=== PATIENT | female | born 1935 | race Caucasian/White ===

== ENCOUNTER 2024-01-15 08:20 | Day surgery (SDC) | payer MEDICARE, MEDICAID, SELFPAY ==
--- NOTE | 2024-01-15 07:07 | W.PREOPHP ---
Assessment and Plan Assessment and plan (1) Cortical age-related cataract, right eye: Status: Acute Assessment and plan: Assessment: visually significant cataract of the right eye. Plan: Cataract extraction with lens implantation of the right eye. (2) Nuclear age-related cataract, right eye: Status: Acute Assessment and plan: Assessment: visually significant cataract of the right eye. Plan: Cataract extraction with lens implantation of the right eye. (3) Cortical age-related cataract, left eye: Status: Acute Assessment and plan: Assessment: Visually significant cataract of the left eye. Plan: Cataract extraction with lens implantation of the left eye. (4) Nuclear age-related cataract, left eye: Status: Acute Assessment and plan: Assessment: Visually significant cataract of the left eye. Plan: Cataract extraction with lens implantation of the left eye. History of Present Illness History of Present Illness Chief Complaint: Progressive decreased vision, both eyes Narrative: The patient is an 88-year-old lady who presented with complaints of progressive decreased vision in both eyes at both distance and near. She notes difficulty seeing the TV clearly, and has difficulty reading. She can only read larger print. She has severe difficulty with glare. On examination she was noted to have dense bilateral cataracts. The option of cataract surgery was offered to the patient and she wished to proceed. 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-related cataract, right eye (Acute) Medical History Generalized anxiety disorder Emphysema lung Insomnia GERD (gastroesophageal reflux disease) Left hip pain PVD (peripheral vascular disease) Fibromyalgia Chronic combined systolic (congestive) and diastolic (congestive) heart failure Chronic ischemic heart disease Heart disease HTN (hypertension) Heart failure Chronic kidney disease COPD (chronic obstructive pulmonary disease) Social History Smoking/Tobacco Use Status: Unknown Smoking risk assessment performed?: Yes Alcohol Intake: never Drug use: Never Substance use type: does not use Housing: senior care Additional Social history: unable to assess Meds Allergies and Home Medications Allergies Allergy/AdvReac Type Severity Reaction Status Date / Time acetaminophen [From Percocet] Allergy Unknown unkown Verified 01/13/24 11:14 aspirin [From Percodan] Allergy Unknown unknown Verified 01/13/24 11:14 celecoxib [From Celebrex] Allergy Unknown unknown Verified 01/13/24 11:14 oxycodone [From Percodan] Allergy Unknown unknown Verified 01/13/24 11:14 morphine Allergy Other (See Verified 01/13/24 11:14 Comment) nalfon Allergy Unknown unkown Uncoded 01/13/24 11:14 Home Medications Medication Instructions Recorded Confirmed Type acetaminophen 325 mg tablet (Pain 325 mg PO Q6H PRN 01/13/24 01/13/24 History Relief (acetaminophen)) albuterol sulfate 90 mcg/actuation 2 puff inhalation Q4H PRN 01/13/24 01/13/24 History aerosol inhaler amlodipine 10 mg tablet 5 mg PO DAILY 01/13/24 01/13/24 History camphor-menthol 0.2 %-3.5 % 1 applic topical BID 01/13/24 01/13/24 History topical gel (Arctic Relief) cyanocobalamin (vitamin B-12) 500 500 mcg PO DAILY 01/13/24 01/13/24 History mcg tablet (Vitamin B-12) dextran 70-hypromellose eye drops 1 drp ophthalmic (eye) BID PRN 01/13/24 01/13/24 History (Artificial Tears (dextran 70-hypromellose) eye drops) estradiol 0.01% (0.1 mg/gram) 1 g vaginal .COMPLEX 01/13/24 01/13/24 History vaginal cream famotidine 20 mg tablet 20 mg PO DAILY 01/13/24 01/13/24 History fluticasone propionate 115 1 puff inhalation HS 01/13/24 01/13/24 History mcg-salmeterol 21 mcg/actuation HFA inhaler (Advair HFA) guaifenesin 600 mg tablet, 600 mg PO Q12H PRN 01/13/24 01/13/24 History extended release 12 hr (Mucus Relief ER) isosorbide mononitrate 60 mg 30 mg PO QAM 01/13/24 01/13/24 History tablet,extended release 24 hr loperamide 2 mg tablet (Imodium 4 mg PO Q1H 01/13/24 01/13/24 History A-D) lorazepam 1 mg tablet 1 mg PO HS 01/13/24 01/13/24 History meclizine 12.5 mg tablet 12.5 mg PO Q12H PRN 01/13/24 01/13/24 History melatonin 3 mg capsule 6 mg PO HS PRN 01/13/24 01/13/24 History mineral oil-isopropyl myristat 1 applic topical DAILY PRN 01/13/24 01/13/24 History lotion (Minerin lotion) nitroglycerin 0.4 mg sublingual 0.4 mg sublingual Q5M 01/13/24 01/13/24 History tablet ondansetron 4 mg disintegrating 4 mg PO Q6H PRN 01/13/24 01/13/24 History tablet phenylephrine 0.25 %-mineral oil 1 applic [place] DAILY 01/13/24 01/13/24 History 14 %-petrolatm 74.9 % rectal ointment (Preparation H) pramoxine-calamine 1 %-3 % lotion 1 applic topical DAILY 01/13/24 01/13/24 History (Aveeno Anti-Itch) pregabalin 75 mg capsule 75 mg PO BID 01/13/24 01/13/24 History tramadol 50 mg tablet 50 mg PO TID 01/13/24 01/13/24 History Exam Eyes Other: Most recent ocular examination is significant for corrected visual acuity of 20/50 OD, 20/30 OS. Extract motility is normal. Intraocular pressure is 7 OU. Slit-lamp examination reveals pupils dilating only to 4 mm OU. Moderate nuclear and cortical cataracts are present OU. Funduscopic examination shows disc cupping of 0.35 OU with normal vessels, macula, peripheral retina and vitreous. Resp Auscultation: clear to auscultation bilaterally Cardio Rate: regular rate Rhythm: regular rhythm
[2024-01-15 08:33] VITALS: BP 158/80; PULSE 65; RESP 18; TEMP 36.3; O2SAT 93
[2024-01-15] MEDS: Lactated Ringers 1,000 ML 50 ML IV (09:10)
--- NOTE | 2024-01-15 09:30 | W.ANESPRE ---
General Info Date of Service Date Performed: 01/15/24 Height: 5 ft 6 in Weight: 69.9 kg Body Mass Index (BMI): 24.8 Surgical Procedure: Operation Date: 01/15/24 09:55 Proposed Procedure Side Surgeon p Cataract Extraction with IOL Implant Right Tommy Roman MD Meds Allergies and Home Medications Allergies Allergy/AdvReac Type Severity Reaction Status Date / Time acetaminophen [From Percocet] Allergy Unknown unkown Verified 01/15/24 08:27 aspirin [From Percodan] Allergy Unknown unknown Verified 01/15/24 08:27 celecoxib [From Celebrex] Allergy Unknown unknown Verified 01/15/24 08:27 oxycodone [From Percodan] Allergy Unknown unknown Verified 01/15/24 08:27 morphine Allergy Other (See Verified 01/15/24 08:27 Comment) nalfon Allergy Unknown unkown Uncoded 01/15/24 08:27 Home Medication Medication Instructions Recorded acetaminophen 325 mg tablet (Pain 325 mg PO Q6H PRN 01/13/24 Relief (acetaminophen)) albuterol sulfate 90 mcg/actuation 2 puff inhalation Q4H PRN 01/13/24 aerosol inhaler amlodipine 10 mg tablet 5 mg PO DAILY 01/13/24 camphor-menthol 0.2 %-3.5 % 1 applic topical BID 01/13/24 topical gel (Arctic Relief) cyanocobalamin (vitamin B-12) 500 500 mcg PO DAILY 01/13/24 mcg tablet (Vitamin B-12) dextran 70-hypromellose eye drops 1 drp ophthalmic (eye) BID PRN 01/13/24 (Artificial Tears (dextran 70-hypromellose) eye drops) estradiol 0.01% (0.1 mg/gram) 1 g vaginal .COMPLEX 01/13/24 vaginal cream famotidine 20 mg tablet 20 mg PO DAILY 01/13/24 fluticasone propionate 115 1 puff inhalation HS 01/13/24 mcg-salmeterol 21 mcg/actuation HFA inhaler (Advair HFA) guaifenesin 600 mg tablet, 600 mg PO Q12H PRN 01/13/24 extended release 12 hr (Mucus Relief ER) isosorbide mononitrate 60 mg 30 mg PO QAM 01/13/24 tablet,extended release 24 hr loperamide 2 mg tablet (Imodium 4 mg PO Q1H 01/13/24 A-D) lorazepam 1 mg tablet 1 mg PO HS 01/13/24 meclizine 12.5 mg tablet 12.5 mg PO Q12H PRN 01/13/24 melatonin 3 mg capsule 6 mg PO HS PRN 01/13/24 mineral oil-isopropyl myristat 1 applic topical DAILY PRN 01/13/24 lotion (Minerin lotion) nitroglycerin 0.4 mg sublingual 0.4 mg sublingual Q5M 01/13/24 tablet ondansetron 4 mg disintegrating 4 mg PO Q6H PRN 01/13/24 tablet phenylephrine 0.25 %-mineral oil 1 applic [place] DAILY 01/13/24 14 %-petrolatm 74.9 % rectal ointment (Preparation H) pramoxine-calamine 1 %-3 % lotion 1 applic topical DAILY 01/13/24 (Aveeno Anti-Itch) pregabalin 75 mg capsule 75 mg PO BID 01/13/24 tramadol 50 mg tablet 50 mg PO TID 01/13/24 aspirin 81 mg chewable tablet 81 mg PO DAILY 01/15/24 Current Visit Medications: Current Medications Generic Name Dose Route Start Last Admin Trade Name Freq PRN Reason Stop Dose Admin Acetaminophen 1,000 mg 01/15/24 06:00 Acetaminophen 500 Mg Tab PO 02/14/24 05:59 Q4H PRN PRN Balanced Salt Solution 500 ml 01/15/24 06:00 Balanced Salt Soln.-Plus 500 Ml Bag OP 02/14/24 05:59 DIRECTED [facility] Ringer's Solution 1,000 mls @ 80 mls/hr 01/15/24 09:15 IV 02/14/24 09:14 INFUSION [facility] IV Miscellaneous Supplies 1 each 01/15/24 09:15 Iv Access IV 02/14/24 09:14 DIRECTED [facility] Miscellaneous Medication 0 ml 01/15/24 06:00 Prednisolone 1%, Moxifloxacin 0.5%, Bromfenac 0.09% 5ml Btl OD 02/14/24 05:59 DIRECTED [facility] Miscellaneous Medication 0 ml 01/15/24 06:00 01/15/24 09:08 Tropicam./Phenyleph. (1/2.5%) 10 Ml Btl OD 02/14/24 05:59 1 drp DIRECTED [facility] Administration Sodium Chloride 0 ml 01/15/24 09:14 Normal Saline Flush 10 Ml Syr IVP 02/14/24 09:13 PRN PRN Sodium Chloride 0 ml 01/15/24 20:00 Normal Saline Flush 10 Ml Syr IVP 02/14/24 19:59 BID [facility] Sodium Chloride 0 ml 01/15/24 09:14 Normal Saline 10 Ml Vial IJ 02/14/24 09:13 DIRECTED PRN Tetracaine HCl 0 ml 01/15/24 06:00 Tetracaine 0.5% 4 Ml Btl OD 02/14/24 05:59 DIRECTED [facility] PFSH Active Problems Active Problems: Problem Status Onset Code Nuclear age-related cataract, left eye H25.12 Cortical age-related cataract, left eye H25.012 Cortical age-related cataract, right eye H25.011 Nuclear age-related cataract, right eye H25.11 Medical History Medical History Generalized anxiety disorder Emphysema lung Insomnia GERD (gastroesophageal reflux disease) Left hip pain PVD (peripheral vascular disease) Fibromyalgia Chronic combined systolic (congestive) and diastolic (congestive) heart failure Chronic ischemic heart disease Heart disease HTN (hypertension) Heart failure Chronic kidney disease COPD (chronic obstructive pulmonary disease) Tobacco Smoking/Tobacco Use Status: Unknown Alcohol Alcohol Intake: never Substance Use Substance use: Never Substance use type: does not use Vital Signs and Lab Results Vital Signs Most Recent Vital Signs in EMR: Most Recent Vital Signs Temp Pulse Resp BP Pulse Ox 36.3 C L 65 18 158/80 H 93 01/15/24 08:33 01/15/24 08:33 01/15/24 08:33 01/15/24 08:33 01/15/24 08:33 Lab Results Blood Type / Crossmatch: No Data to Display Complete Blood Count: No Data to Display Complete Metabolic Panel: No Data to Display Liver Function Panel: No Data to Display Coagulation Panel: No Data to Display Cardiac Panel: No Data to Display Arterial Blood Gas: No Data to Display Venous Blood Gas: No Data to Display Pancreas Panel: No Data to Display Thyroid Panel: No Data to Display Infectious Disease: No Data to Display Blood Cultures: No Data to Display Toxicology Panel: No Data to Display Anesthesia Assessment and Plan Anesthesia History Personal History: No History of Anesthesia Complications Family History: Family History Unknown Exercise Tolerance Exercise Tolerance: Metabolic Equivalents<4 Pertinent Negatives Pertinent Negatives: No Symptoms of GERD Cardiac & Pulmonary Exam Cardiac Exam: Normal S1/S2 Heart Sounds Pulmonary Exam: Clear Bilateral Breath Sounds Implantable Cardiac Device Does patient have a Pacemaker or an ICD?: No Airway Exam Known Difficult Airway: No Mallampati Class: 2 Mouth Opening: Normal (> 3cm) Thyromental Distance: Greater than 3 cm Neck Range of Motion: Full ROM Neck Circumference: Normal Teeth Condition: Normal Dentition ASA Classification ASA Score: ASA 3 Emergency Case?: No NPO Status NPO Status: NPO Clears >2 hours, Solids >8 hours Anesthesia Plan Resuscitation Status: Full Code Anesthesia Technique: MAC Anesthesia Airway Planned: Natural Airway Monitors Used: Standard Monitors
[2024-01-15 09:33] VITALS: BMI 24.8
[2024-01-15] MEDS: Balanced Salt Soln.-PLUS 500 ML BAG OP (10:02)
[2024-01-15] MEDS: Duovisc Viscoelastic System EACH 1 EACH (10:04)
[2024-01-15] MEDS: Tetracaine 0.5% 4 ML BTL OD (10:04)
[2024-01-15] MEDS: Lidocaine 1% Pres-Free 5 ML VIAL (10:05)
[2024-01-15] MEDS: Povidone-Iodine Ophth 30 ML BTL (10:06)
[2024-01-15] MEDS: Trypan Blue 0.06% 0.5 ML SYR (10:06)
[2024-01-15 10:19] VITALS: BP 150/73; PULSE 58; RESP 16; TEMP 36; O2SAT 93
--- NOTE | 2024-01-15 10:19 | W.PM.DSUDISC ---
Date of service: 01/15/24 Time of Service: 10:19 Discharge Plan Disposition Patient Disposition: Home Discharge Details Attending Provider: Tommy Roman Primary Care Provider: Leonie Byrd Home Meds and New Rx's Prescriptions: No Action lorazepam 1 mg tablet 1 mg PO HS amlodipine 10 mg tablet 5 mg PO DAILY isosorbide mononitrate 60 mg tablet extended release 24 hr 30 mg PO QAM albuterol sulfate 90 mcg/actuation HFA aerosol inhaler 2 puff INHALATION Q4H PRN nitroglycerin 0.4 mg tablet, sublingual 0.4 mg sublingual Q5M acetaminophen [Pain Relief (acetaminophen)] 325 mg tablet 325 mg PO Q6H PRN tramadol 50 mg tablet 50 mg PO TID Artificial Tears([id number]) Drops 1 drp ophthalmic (eye) BID PRN Preparation H 0.25-14-74.9 % ointment 1 applic [place] DAILY Arctic Relief 0.2-3.5 % gel 1 applic topical BID Rx Instructions: rub in gently and completely Aveeno Anti-Itch 1-3 % lotion 1 applic topical DAILY cyanocobalamin (vitamin B-12) [Vitamin B-12] 500 mcg tablet 500 mcg PO DAILY ondansetron 4 mg tablet,disintegrating 4 mg PO Q6H PRN meclizine 12.5 mg tablet 12.5 mg PO Q12H PRN famotidine 20 mg tablet 20 mg PO DAILY melatonin 3 mg capsule 6 mg PO HS PRN fluticasone propion-salmeterol [Advair HFA] 115-21 mcg/actuation HFA aerosol inhaler 1 puff INHALATION HS Minerin Lotion 1 applic topical DAILY PRN estradiol 0.01 % (0.1 mg/gram) cream 1 g VAGINAL .COMPLEX Rx Instructions: 1 g vaginally Mon,Wed,Fri; loperamide [Imodium A-D] 2 mg tablet 4 mg PO Q1H Rx Instructions: administer after each loose stool until symptoms controlled; do not exceed 8 mg per 24 hrs guaifenesin [Mucus Relief ER] 600 mg tablet extended release 12hr 600 mg PO Q12H PRN pregabalin 75 mg capsule 75 mg PO BID aspirin 81 mg tablet,chewable 81 mg PO DAILY Discharge Instructions Stand Alone Forms: DSU Post-Op Cataract, Press Ganey (DSU) Discharge Orders Discharge Orders: Discharge Order (Routine); Ordered 01/15/24 Ordered By: Tommy Roman DS: Diagnosis Discharge Diagnosis (1) Cortical age-related cataract, right eye: Status: Acute (2) Nuclear age-related cataract, right eye: Status: Acute
--- NOTE | 2024-01-15 10:20 | W.PM.OP ---
Date of service: 01/15/24 Time of Service: 10:21 Operative Note Operative Note DATE OF PROCEDURE: 01/15/24 PRE-OP DIAGNOSIS: Nuclear/cortical cataract, right eye POST-OP DIAGNOSIS: same PROCEDURE: Cataract extraction using phacoemulsification with intraocular lens implant, right eye SURGEON: Tommy Roman ANESTHESIA TYPE: Local By Surgeon and MAC Refer to Anesthesia Record ESTIMATED BLOOD LOSS: 0 PATHOLOGY: none sent COMPLICATIONS: None Patient was transported to: same day Patient's condition: stable Implants: Spencer Clareon [id number] Indications: Progressive decreased vision due to cataract, right eye Procedure Description: CATARACT SURGERY OPERATIVE REPORT PREOPERATIVE DIAGNOSIS: Nuclear/cortical cataract, right eye POSTOPERATIVE DIAGNOSIS: Same OPERATION: Cataract extraction using phacoemulsification with posterior chamber intraocular lens implant, right eye. IOL: IOL Hydrometeorology Teacher/Model: Spencer Clareon [id number] IOL Power: + 22.5 diopters IOL Serial Number: [id number] Optic Diameter: 6.0mm Haptic/Overall Diameter: 13.0mm PHACO INFO: SpencerOpencareurion Vision System with OZil and Active Fluidics Cumulative Dispersed Energy (CDE): 18.2 to seconds SURGEON: Tommy Roman MD, FAUSTINA ANESTHESIA: Monitored Anesthesia Care (MAC), with local sub-tenon's anesthetic infiltration COMPLICATIONS: None SPECIMENS: None INDICATIONS FOR PROCEDURE: The patient is an 88-year-old lady with history of diminished visual acuity in both eyes secondary to the development of bilateral nuclear/cortical cataract. She is significantly symptomatic that she desires cataract surgery and attempt to improve and maximize her vision. The option of cataract surgery was offered to the patient and she wished to proceed. See office notes for detailed information. PROCEDURE: The correct surgical eye was identified and marked as the right eye and the pupil was dilated in the preoperative area using mydriatics and cycloplegics. The dilated pupil size was 5.0 mm. Oral sedation was administered in the form of an Imprimis MKO Melt (midazolam 3mg/ketamine 25mg/ondansetron 2mg).The patient was brought to the operating room where cardiopulmonary monitoring was instituted and surgical time-out was performed, confirming the correct operative eye and IOL power. Topical anesthesia was administered and ophthalmic povidone-iodine 5% was instilled into the conjunctival fornices. The lesa-ocular area was prepped with Betadine 10% solution and draped in the usual sterile fashion for intraocular surgery, including an aperture drape. A Tegaderm transparent film dressing was cut in half and used to cover the lashes and lid margins. Care was taken to sequester the lashes and lid margins under the Tegaderm dressing. A lid speculum was placed between the lids of the operative eye and the Tiffany-Lilia operating microscope was maneuvered into position. Giuliana scissors were then used to make a conjunctival buttonhole approximately 6mm posterior to the limbus in the inferonasal quadrant. Blunt dissection was carried out to expose bare sclera, and a blunt-tipped sub-tenon?s anesthesia cannula was introduced and passed posteriorly along the globe where non-preserved plain lidocaine was injected into posterior sub-Tenon?s space. A sideport knife was used to make a paracentesis port. VisionBlue was injected into the anterior chamber and allowed to sit for 20 seconds. Intraocular phenylephrine/lidocaine was injected into the anterior chamber. The anterior chamber was then filled with viscoelastic. A keratome knife was used to construct a two--plane clear corneal tunnel extending 2.0mm into clear cornea. A flap was raised on the anterior capsule and capsulorhexis forceps were used to complete a continuous curvilinear capsulorhexis of 5.0 mm. Balanced salt solution was then used to perform cortical cleaving hydrodissection and nuclear hydrodelineation until the lens could be freely rotated within the capsular bag. The lens nucleus was then disassembled and removed within the capsular bag and iris plane using phacoemulsification. Residual cortical material was removed using the I/A handpiece. The posterior capsule was carefully polished to remove as much residual lens epithelial cells as safely possible. The capsular bag was then inflated and the anterior chamber deepened with cohesive viscoelastic. The lens implant described above was inserted into the capsular bag using the Spencer Autonome Injector. A Kuglen hook was used to dial the IOL into position. Residual viscoelastic was then removed first from posterior to the IOL, then from the anterior chamber using the I/A handpiece. The lens implant was noted to center nicely within the capsular bag. The incisions were stromally hydrated, and the anterior chamber was reformed using BSS. Then 0.5cc of moxifloxacin 1.0mg/ml were injected into the capsular bag and anterior chamber. The incisions were checked with a Weck spear and found to be secure. Several drops of ophthalmic povidone-iodine 5% were then applied to the eye followed by two drops of combination steroid/NSAID/antibiotic solution. The drapes were removed and a clear plastic protective eye shield was placed over the eye. The patient was then returned to Same Day Surgery in stable condition.
--- NOTE | 2024-01-15 10:33 | W.ANESPOSTOP ---
Postoperative Evaluation Date, Time and Location Date Performed: 01/15/24 Time Performed: 10:25 Patient Location: Day Surgery Unit Vital Signs Most Recent Imported Vital Signs: Most Recent Vital Signs Temp Pulse Resp BP Pulse Ox 36.3 C L 65 18 158/80 H 93 01/15/24 08:33 01/15/24 08:33 01/15/24 08:33 01/15/24 08:33 01/15/24 08:33 Pain Score Most Recent Pain Score: Most Recent Pain Score Pain Level 0 01/15/24 08:33 Assessment Mental Status: Awake (Alert & Oriented to Patient Baseline) Airway and Respiratory Function: Patent airway with normal (patient baseline) respiratory exam Cardiovascular Function: Hemodynamically Stable Hydration Status: Adequately Hydrated Nausea & Vomiting: No Nausea or Vomiting Pain: Pt. Denies Any Pain Peripheral Nerve Block: Patient did not receive a nerve block
[2024-01-15 10:45] VITALS: BP 136/74; PULSE 60; RESP 16; TEMP 36.4; O2SAT 95
== END 2024-01-15 10:54 | disposition home or self-care (01) ==
LOC: SUR 08:21
PROVIDERS: PCP Legal Medicine; Visit Provider Ophthalmology
PROC: (CPT 66984; principal; 2024-01-15 09:45)
DX: H25.011 Cortical age-related cataract, right eye (principal); H25.11 Age-related nuclear cataract, right eye; I10 Essential (primary) hypertension; K21.9 Gastro-esophageal reflux disease without esophagitis
CPT/HCPCS: 66984; 00123; V2632; J2003

== ENCOUNTER 2024-01-29 08:10 | Day surgery (SDC) | payer MEDICARE, MEDICAID, SELFPAY ==
[2024-01-29 08:31] VITALS: BP 169/71; PULSE 61; RESP 16; TEMP 36.4; O2SAT 96
--- NOTE | 2024-01-29 09:35 | ANES.PREOP_ITS ---
General Info Date of Service Date Performed: 01/29/24 Height: 5 ft 1 in Weight: 69.4 kg Body Mass Index (BMI): 28.9 Surgical Procedure: Operation Date: 01/29/24 09:55 Proposed Procedure Side Surgeon p Cataract Extraction with IOL Implant Left Tommy Roman MD Meds Allergies and Home Medications Allergies Allergy/AdvReac Type Severity Reaction Status Date / Time acetaminophen [From Percocet] Allergy Unknown unkown Verified 01/29/24 08:25 aspirin [From Percodan] Allergy Unknown unknown Verified 01/29/24 08:25 celecoxib [From Celebrex] Allergy Unknown unknown Verified 01/29/24 08:25 oxycodone [From Percodan] Allergy Unknown unknown Verified 01/29/24 08:25 morphine Allergy Other (See Verified 01/29/24 08:25 Comment) nalfon Allergy Unknown unkown Uncoded 01/29/24 08:25 Home Medication Medication Instructions Recorded acetaminophen 325 mg tablet (Pain 325 mg PO Q6H PRN 01/13/24 Relief (acetaminophen)) albuterol sulfate 90 mcg/actuation 2 puff inhalation Q4H PRN 01/13/24 aerosol inhaler amlodipine 10 mg tablet 5 mg PO DAILY 01/13/24 camphor-menthol 0.2 %-3.5 % 1 applic topical BID 01/13/24 topical gel (Arctic Relief) cyanocobalamin (vitamin B-12) 500 500 mcg PO DAILY 01/13/24 mcg tablet (Vitamin B-12) dextran 70-hypromellose eye drops 1 drp ophthalmic (eye) BID PRN 01/13/24 (Artificial Tears (dextran 70-hypromellose) eye drops) estradiol 0.01% (0.1 mg/gram) 1 g vaginal .COMPLEX 01/13/24 vaginal cream famotidine 20 mg tablet 20 mg PO DAILY 01/13/24 fluticasone propionate 115 1 puff inhalation HS 01/13/24 mcg-salmeterol 21 mcg/actuation HFA inhaler (Advair HFA) guaifenesin 600 mg tablet, 600 mg PO Q12H PRN 01/13/24 extended release 12 hr (Mucus Relief ER) isosorbide mononitrate 60 mg 30 mg PO QAM 01/13/24 tablet,extended release 24 hr loperamide 2 mg tablet (Imodium 4 mg PO Q1H 01/13/24 A-D) lorazepam 1 mg tablet 1 mg PO HS 01/13/24 meclizine 12.5 mg tablet 12.5 mg PO Q12H PRN 01/13/24 melatonin 3 mg capsule 6 mg PO HS PRN 01/13/24 mineral oil-isopropyl myristat 1 applic topical DAILY PRN 01/13/24 lotion (Minerin lotion) nitroglycerin 0.4 mg sublingual 0.4 mg sublingual Q5M 01/13/24 tablet ondansetron 4 mg disintegrating 4 mg PO Q6H PRN 01/13/24 tablet phenylephrine 0.25 %-mineral oil 1 applic [place] DAILY 01/13/24 14 %-petrolatm 74.9 % rectal ointment (Preparation H) pramoxine-calamine 1 %-3 % lotion 1 applic topical DAILY 01/13/24 (Aveeno Anti-Itch) pregabalin 75 mg capsule 75 mg PO BID 01/13/24 tramadol 50 mg tablet 50 mg PO TID 01/13/24 aspirin 81 mg chewable tablet 81 mg PO DAILY 01/15/24 oseltamivir 30 mg capsule 30 mg PO DIRECTED 01/27/24 Current Visit Medications: Current Medications Generic Name Dose Route Start Last Admin Trade Name Reina PRN Reason Stop Dose Admin Balanced Salt Solution 500 ml 01/29/24 06:00 Balanced Salt Soln.-Plus 500 Ml Bag OP 02/28/24 05:59 DIRECTED [facility] Miscellaneous Medication 0 ml 01/29/24 06:00 Prednisolone 1%, Moxifloxacin 0.5%, Bromfenac 0.09% 5ml Btl OS 02/28/24 05:59 DIRECTED [facility] Miscellaneous Medication 0 ml 01/29/24 06:00 01/29/24 08:57 Tropicam./Phenyleph. 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, left eye H25.012 Cortical age-related cataract, right eye H25.011 Nuclear age-related cataract, right eye H25.11 Medical History Medical History Generalized anxiety disorder Emphysema lung Insomnia GERD (gastroesophageal reflux disease) Left hip pain PVD (peripheral vascular disease) Fibromyalgia Chronic combined systolic (congestive) and diastolic (congestive) heart failure Chronic ischemic heart disease Heart disease HTN (hypertension) Heart failure Chronic kidney disease COPD (chronic obstructive pulmonary disease) Tobacco Smoking/Tobacco Use Status: Former Tobacco Use Alcohol Alcohol Intake: never Substance Use Substance use: Never Substance use type: does not use Vital Signs and Lab Results Vital Signs Most Recent Vital Signs in EMR: Most Recent Vital Signs Temp Pulse Resp BP Pulse Ox 36.4 C L 61 16 169/71 H 96 01/29/24 08:31 01/29/24 08:31 01/29/24 08:31 01/29/24 08:31 01/29/24 08:31 Lab Results Blood Type / Crossmatch: No Data to Display Complete Blood Count: No Data to Display Complete Metabolic Panel: No Data to Display Liver Function Panel: No Data to Display Coagulation Panel: No Data to Display Cardiac Panel: No Data to Display Arterial Blood Gas: No Data to Display Venous Blood Gas: No Data to Display Pancreas Panel: No Data to Display Thyroid Panel: No Data to Display Infectious Disease: No Data to Display Blood Cultures: No Data to Display Toxicology Panel: No Data to Display Anesthesia Assessment and Plan Anesthesia History Personal History: No History of Anesthesia Complications Family History: Family History Unknown Exercise Tolerance Exercise Tolerance: Metabolic Equivalents<4 Pertinent Negatives Pertinent Negatives: No Symptoms of GERD Cardiac & Pulmonary Exam Cardiac Exam: Normal S1/S2 Heart Sounds Pulmonary Exam: Clear Bilateral Breath Sounds Implantable Cardiac Device Does patient have a Pacemaker or an ICD?: No Airway Exam Known Difficult Airway: No Mallampati Class: 2 Mouth Opening: Normal (> 3cm) Thyromental Distance: Greater than 3 cm Neck Range of Motion: Full ROM Neck Circumference: Normal Teeth Condition: Normal Dentition ASA Classification ASA Score: ASA 3 Emergency Case?: No NPO Status NPO Status: NPO Clears >2 hours, Solids >8 hours Anesthesia Plan Resuscitation Status: Full Code Anesthesia Technique: MAC Anesthesia Airway Planned: Natural Airway Monitors Used: Standard Monitors Preoperative Comments:: Pt requesting MKO tablet after receiving one during her previous cataract. Pt is a walk assist normally and was counseled that MKO tablets may affect her balance for several days and make her unsteady on her feet. Pt. is HIGH RISK for falling. Facility staff was at bedside and made aware of risk. Pt electing to proceed with MKO. Clarisse Jones CRNA
[2024-01-29 09:40] VITALS: BMI 28.9
[2024-01-29] MEDS: Lidocaine 1% Pres-Free 5 ML VIAL (09:50)
[2024-01-29] MEDS: Balanced Salt Soln.-PLUS 500 ML BAG OP (09:51)
[2024-01-29] MEDS: Tetracaine 0.5% 4 ML BTL OS (09:52)
[2024-01-29] MEDS: Duovisc Viscoelastic System EACH 1 EACH (09:53)
[2024-01-29] MEDS: Trypan Blue 0.06% 0.5 ML SYR (09:54)
[2024-01-29] MEDS: Povidone-Iodine Ophth 30 ML BTL (09:54)
[2024-01-29 10:10] VITALS: BP 125/76; PULSE 54; RESP 16; TEMP 36.6; O2SAT 95
--- NOTE | 2024-01-29 10:11 | PDOC.DSDIS_ITS ---
Date of service: 01/29/24 Time of Service: 10:11 Discharge Plan Disposition Patient Disposition: Home Discharge Details Attending Provider: Tommy Roman Primary Care Provider: Leonie Byrd Home Meds and New Rx's Prescriptions: No Action lorazepam 1 mg tablet 1 mg PO HS amlodipine 10 mg tablet 5 mg PO DAILY isosorbide mononitrate 60 mg tablet extended release 24 hr 30 mg PO QAM albuterol sulfate 90 mcg/actuation HFA aerosol inhaler 2 puff INHALATION Q4H PRN nitroglycerin 0.4 mg tablet, sublingual 0.4 mg sublingual Q5M acetaminophen [Pain Relief (acetaminophen)] 325 mg tablet 325 mg PO Q6H PRN tramadol 50 mg tablet 50 mg PO TID Artificial Tears([id number]) Drops 1 drp ophthalmic (eye) BID PRN Preparation H 0.25-14-74.9 % ointment 1 applic [place] DAILY Arctic Relief 0.2-3.5 % gel 1 applic topical BID Rx Instructions: rub in gently and completely Aveeno Anti-Itch 1-3 % lotion 1 applic topical DAILY cyanocobalamin (vitamin B-12) [Vitamin B-12] 500 mcg tablet 500 mcg PO DAILY ondansetron 4 mg tablet,disintegrating 4 mg PO Q6H PRN meclizine 12.5 mg tablet 12.5 mg PO Q12H PRN famotidine 20 mg tablet 20 mg PO DAILY melatonin 3 mg capsule 6 mg PO HS PRN fluticasone propion-salmeterol [Advair HFA] 115-21 mcg/actuation HFA aerosol inhaler 1 puff INHALATION HS Minerin Lotion 1 applic topical DAILY PRN estradiol 0.01 % (0.1 mg/gram) cream 1 g VAGINAL .COMPLEX Rx Instructions: 1 g vaginally Mon,Wed,Fri; loperamide [Imodium A-D] 2 mg tablet 4 mg PO Q1H Rx Instructions: administer after each loose stool until symptoms controlled; do not exceed 8 mg per 24 hrs guaifenesin [Mucus Relief ER] 600 mg tablet extended release 12hr 600 mg PO Q12H PRN pregabalin 75 mg capsule 75 mg PO BID aspirin 81 mg tablet,chewable 81 mg PO DAILY oseltamivir 30 mg capsule 30 mg PO DIRECTED Patient Comments: Was prescribed prophylactically due to shelter outbreak. Per staff pt. never contracted flu. Discharge Instructions Stand Alone Forms: [facility] Post-Op Cataract, Jacque Bell ([facility]) Discharge Orders Discharge Orders: Discharge Order (Routine); Ordered 01/29/24 Ordered By: Tommy Roman DS: Diagnosis Discharge Diagnosis (1) Nuclear age-related cataract, left eye: Status: Resolved (2) Cortical age-related cataract, left eye: Status: Resolved
--- NOTE | 2024-01-29 10:11 | W.PM.OP ---
Date of service: 01/29/24 Time of Service: 10:12 Operative Note Operative Note DATE OF PROCEDURE: 01/29/24 PRE-OP DIAGNOSIS: Nuclear/cortical cataract, left eye POST-OP DIAGNOSIS: same PROCEDURE: Cataract extraction using phacoemulsification with intraocular lens implant, left eye SURGEON: Tommy Roman ANESTHESIA TYPE: Local By Surgeon and MAC Refer to Anesthesia Record PATHOLOGY: none sent COMPLICATIONS: None Patient was transported to: same day Patient's condition: stable Implants: Spencer Clareon [id number] Indications: Progressive decreased vision due to cataract, left eye Procedure Description: CATARACT SURGERY OPERATIVE REPORT PREOPERATIVE DIAGNOSIS: Nuclear/cortical cataract, left eye POSTOPERATIVE DIAGNOSIS: Same OPERATION: Cataract extraction using phacoemulsification with posterior chamber intraocular lens implant, left eye. IOL: IOL Business Leader/Model: Spencer Clareon [id number] IOL Power: + 22.0 diopters IOL Serial Number: [id number] Optic Diameter: 6.0mm Haptic/Overall Diameter: 13.0mm PHACO INFO: SpencerPindrop Securityurion Vision System with OZil and Active Fluidics Cumulative Dispersed Energy (CDE): 16.40 seconds SURGEON: Tommy Roman MD, FAUSTINA ANESTHESIA: Monitored Anesthesia Care (MAC), with local sub-tenon's anesthetic infiltration COMPLICATIONS: None SPECIMENS: None INDICATIONS FOR PROCEDURE: The patient is a 88-year-old lady with history of diminished visual acuity in both eyes secondary to the development of bilateral nuclear/cortical cataract. She has already undergone cataract surgery in the right eye and is doing well postoperatively. She now presents for cataract surgery in the left eye. See office notes for detailed information. PROCEDURE: The correct surgical eye was identified and marked as the left eye and the pupil was dilated in the preoperative area using mydriatics and cycloplegics. The dilated pupil size was 4.5 mm. Oral sedation was administered in the form of an Imprimis MKO Melt (midazolam 3mg/ketamine 25mg/ondansetron 2mg). The patient was brought to the operating room where cardiopulmonary monitoring was instituted and surgical time-out was performed, confirming the correct operative eye and IOL power. Topical anesthesia was administered and ophthalmic povidone-iodine 5% was instilled into the conjunctival fornices. The lesa-ocular area was prepped with Betadine 10% solution and draped in the usual sterile fashion for intraocular surgery, including an aperture drape. A Tegaderm transparent film dressing was cut in half and used to cover the lashes and lid margins. Care was taken to sequester the lashes and lid margins under the Tegaderm dressing. A lid speculum was placed between the lids of the operative eye and the Spencer LuxOR Revalia operating microscope was maneuvered into position. Giuliana scissors were then used to make a conjunctival buttonhole approximately 6mm posterior to the limbus in the inferonasal quadrant. Blunt dissection was carried out to expose bare sclera, and a blunt-tipped sub-tenon?s anesthesia cannula was introduced and passed posteriorly along the globe where non-preserved plain lidocaine was injected into posterior sub-Tenon?s space. A sideport knife was used to make a paracentesis port. VisionBlue was injected into the anterior chamber and allowed to sit for 20 seconds. Intraocular phenylephrine/lidocaine was injected into the anterior chamber. The anterior chamber was then filled with viscoelastic. A keratome knife was used construct a two-plane clear corneal tunnel extending 2.0mm into clear cornea. A flap was raised on the anterior capsule and capsulorhexis forceps were used to complete a continuous curvilinear capsulorhexis of 5.0 mm. Balanced salt solution was then used to perform cortical cleaving hydrodissection and nuclear hydrodelineation until the lens could be freely rotated within the capsular bag. The lens nucleus was then disassembled and removed within the capsular bag and iris plane using phacoemulsification. Residual cortical material was removed using the irrigation/aspiration handpiece. The posterior capsule was carefully polished to remove as much residual lens epithelial cells as safely possible. The capsular bag was then inflated and the anterior chamber deepened with viscoelastic. The lens implant described above was inserted into the capsular bag using the Spencer Autonome Injector. A Kuglen hook was used to dial the IOL into position. Residual viscoelastic was then removed first from posterior to the IOL, then from the anterior chamber using the I/A handpiece. The lens implant was noted to center nicely within the capsular bag. The incisions were stromally hydrated, and the anterior chamber was reformed using BSS. Then 0.5cc of moxifloxacin 1.0mg/ml were injected into the capsular bag and anterior chamber. The incisions were checked with a Weck spear and found to be secure. Several drops of ophthalmic povidone-iodine 5% were then applied to the eye followed by two drops of combination steroid/NSAID/antibiotic solution. The drapes were removed and a clear plastic protective eye shield was placed over the eye. The patient was then returned to Same Day Surgery in stable condition.
--- NOTE | 2024-01-29 10:21 | W.ANESPOSTOP ---
Postoperative Evaluation Date, Time and Location Date Performed: 01/29/24 Time Performed: 10:21 Patient Location: Day Surgery Unit Vital Signs Most Recent Imported Vital Signs: Most Recent Vital Signs Temp Pulse Resp BP Pulse Ox 36.4 C L 61 16 169/71 H 96 01/29/24 08:31 01/29/24 08:31 01/29/24 08:31 01/29/24 08:31 01/29/24 08:31 Pain Score Most Recent Pain Score: Most Recent Pain Score Pain Level 0 01/29/24 08:31 Assessment Mental Status: Awake (Alert & Oriented to Patient Baseline) Airway and Respiratory Function: Patent airway with normal (patient baseline) respiratory exam Cardiovascular Function: Hemodynamically Stable Hydration Status: Adequately Hydrated Nausea & Vomiting: No Nausea or Vomiting Pain: Pt. Denies Any Pain Peripheral Nerve Block: Patient did not receive a nerve block
[2024-01-29 10:35] VITALS: BP 143/69; PULSE 60; RESP 16; TEMP 36.6; O2SAT 94
== END 2024-01-29 10:44 | disposition home or self-care (01) ==
LOC: SUR 08:10
PROVIDERS: PCP Legal Medicine; Visit Provider Ophthalmology
PROC: (CPT 66984; principal; 2024-01-29 09:45)
DX: H25.12 Age-related nuclear cataract, left eye (principal); H25.012 Cortical age-related cataract, left eye; I10 Essential (primary) hypertension; K21.9 Gastro-esophageal reflux disease without esophagitis; Z98.41 Cataract extraction status, right eye
CPT/HCPCS: 66984; 00123; V2632; J2003